=== PATIENT | female | born 1995 | race Caucasian/White ===

== ENCOUNTER 2018-05-03 16:02 | Observation (INO) ==
[2018-05-03] MEDS ORDERED: ZOFRAN INJ 4 MG VIAL IVP PRN (16:09)
[2018-05-03] MEDS ORDERED: DILAUDID INJ IVP PRN (16:10)
[2018-05-03 16:43] LABS: BASOPHILS # (AUTO) 0.1 X10^3/uL (0.0-0.1); BASOPHILS % (AUTO) 1.5 % (0.2-1.0); EOSINOPHILS % (AUTO) 0.6 % (0.9-2.9); HEMATOCRIT 39.3 % (36.0-47.0); HEMOGLOBIN 13.7 g/dL (12.0-16.0); LYMPHOCYTES # (AUTO) 2.4 X10^3/uL (1.3-2.9); LYMPHOCYTES % (AUTO) 34.9 % (21.0-51.0); MEAN CORPUSCULAR HEMOGLOBIN 27.9 pg (27.0-34.0); MEAN CORPUSCULAR HGB CONC 34.9 g/dL (33.0-35.0); MEAN PLATELET VOLUME 7.7 fL (7.4-11.0); MONOCYTES # (AUTO) 0.6 x10^3/uL (0.3-0.8); MONOCYTES % (AUTO) 8.2 % (0.0-13.0); NEUTROPHILS # (AUTO) 3.7 x10^3/uL (2.2-4.8); NEUTROPHILS % (AUTO) 54.8 % (42.0-75.0); PLATELET COUNT 288 X10^3/uL (150.0-450.0); RED BLOOD COUNT 4.91 X10^6/uL (3.5-5.4); RED CELL DISTRIBUTION WIDTH 13.8 % (11.6-16.5); WHITE BLOOD COUNT 6.8 X10^3/uL (3.6-10.0)
[2018-05-03 17:02] LABS: ALANINE AMINOTRANSFERASE 16 Units/L (12-78); ALBUMIN 4.4 g/dL (3.4-5.0); ALKALINE PHOSPHATASE 71 Units/L (46-116); AMYLASE 57 Units/L (25-115); ASPARTATE AMINO TRANSFERASE 10 Units/L (15-37); BLOOD UREA NITROGEN 7 mg/dL (7-18); CARBON DIOXIDE 25.8 mmol/L (21-32); CHLORIDE 102 mmol/L (98-107); CREATININE 0.85 mg/dL (0.55-1.02); LIPASE 102 Units/L (73-393); SODIUM 139 mmol/L (136-145); TOTAL PROTEIN 8.1 g/dL (6.4-8.2); eGFR NON BLACK RACES > 60 (>60)
[2018-05-03] MEDS: PROTONIX INJ 40 MG VIAL IVP SCH (17:19)
[2018-05-03] MEDS: FLAGYL IV PREMIX 500 MG BAG 500 MG/100 ML BAG IV SCH (17:19)
[2018-05-03] MEDS: D5 1/2 NS 1000 ML 1,000 ML IV SCH (17:19)
[2018-05-03] MEDS ORDERED: K-LYTE EFFERVESCENT PO PRN (17:32)
[2018-05-03] MEDS ORDERED: POTASSIUM CHLORIDE LIQ 20 MEQ UDC PO PRN (17:32)
[2018-05-03] MEDS ORDERED: POTASSIUM CHL 40 MEQ/NS 0.45% 500 ML IV PRN (17:32)
[2018-05-03] MEDS ORDERED: POTASSIUM CHL 60 MEQ/NS 0.45% 500 ML IV PRN (17:32)
[2018-05-03] MEDS ORDERED: K-RIDER 10 MEQ/NS 100 ML 10 MEQ/100 ML BAG IV PRN (17:32)
[2018-05-03 20:03] VITALS: BMI 22.1
[2018-05-03 23:31] LABS: CRYPTOSPORIDIUM PARVUM ANTIGEN NEGATIVE (NEGATIVE); GIARDIA LAMBLIA ANTIGEN NEGATIVE (NEGATIVE)
[2018-05-03 23:32] LABS: STOOL FOR WBC NEGATIVE (NEGATIVE)
[2018-05-04] MEDS: FLAGYL IV PREMIX 500 MG BAG 500 MG/100 ML BAG IV SCH ×2 (01:34→08:38)
[2018-05-04 01:53] LABS: BILIRUBIN,URINE NEGATIVE (NEGATIVE); BLOOD/HEMOGLOBIN,URINE NEGATIVE (NEGATIVE); GLUCOSE, URINE NEGATIVE (NEGATIVE); KETONES,URINE 1+ (NEGATIVE); LEUKOCYTE ESTERASE ,URINE 1+ (NEGATIVE); NITRITES,URINE NEGATIVE (NEGATIVE); PROTEIN,URINE NEGATIVE (NEGATIVE); UROBILINOGEN,URINE NORMAL (NORMAL)
[2018-05-04 02:06] LABS: APPEARANCE,URINE CLEAR (CLEAR); COLOR,URINE YELLOW (YELLOW)
[2018-05-04 02:07] LABS: BACTERIA,URINE TRACE /HPF (NEGATIVE); RBC,URINE NONE SEEN /HPF (NONE SEEN); SQUAMOUS EPITHELIAL CELL,UR MODERATE /HPF (NEGATIVE)
[2018-05-04] MEDS: D5 1/2 NS 1000 ML 1,000 ML IV SCH ×3 (03:10→09:52)
[2018-05-04 05:22] LABS: BASOPHILS % (AUTO) 0.5 % (0.2-1.0); EOSINOPHILS % (AUTO) 0.7 % (0.9-2.9); HEMATOCRIT 32.9 % (36.0-47.0); HEMOGLOBIN 11.4 g/dL (12.0-16.0); LYMPHOCYTES # (AUTO) 2.1 X10^3/uL (1.3-2.9); LYMPHOCYTES % (AUTO) 34.8 % (21.0-51.0); MEAN CORPUSCULAR HEMOGLOBIN 27.9 pg (27.0-34.0); MEAN CORPUSCULAR HGB CONC 34.7 g/dL (33.0-35.0); MEAN CORPUSCULAR VOLUME 80.4 fL (80.0-100.0); MEAN PLATELET VOLUME 7.9 fL (7.4-11.0); MONOCYTES # (AUTO) 0.5 x10^3/uL (0.3-0.8); MONOCYTES % (AUTO) 8.6 % (0.0-13.0); NEUTROPHILS # (AUTO) 3.4 x10^3/uL (2.2-4.8); NEUTROPHILS % (AUTO) 55.4 % (42.0-75.0); PLATELET COUNT 248 X10^3/uL (150.0-450.0); RED BLOOD COUNT 4.09 X10^6/uL (3.5-5.4); RED CELL DISTRIBUTION WIDTH 13.7 % (11.6-16.5); WHITE BLOOD COUNT 6.1 X10^3/uL (3.6-10.0)
[2018-05-04 05:51] LABS: ALANINE AMINOTRANSFERASE 15 Units/L (12-78); ALBUMIN 3.4 g/dL (3.4-5.0); ALKALINE PHOSPHATASE 55 Units/L (46-116); ASPARTATE AMINO TRANSFERASE 9 Units/L (15-37); BLOOD UREA NITROGEN 5 mg/dL (7-18); CALCIUM 8.5 mg/dL (8.5-10.1); CHLORIDE 106 mmol/L (98-107); COR NA(FOR HYPERGLY) 139 mmol/L (136-145); CREATININE 0.79 mg/dL (0.55-1.02); SODIUM 139 mmol/L (136-145); TOTAL PROTEIN 6.4 g/dL (6.4-8.2); eGFR NON BLACK RACES > 60 (>60)
[2018-05-04] MEDS: PROTONIX INJ 40 MG VIAL IVP SCH (08:34)
[2018-05-04 13:30] VITALS: BP 109/55
--- NOTE | 2018-06-04 11:51 | DR.CARTERS ---
Short Stay Summary - Short Stay Summary for: Short Stay Summary for Date of:: 05/04/18 - Admission Date Date of Admission: 05/03/18 - Discharge Date Discharge Date: 05/04/18 - Admission Diagnoses (1) Dehydration Status: Acute (2) Diarrhea Status: Acute (3) Gastroenteritis Status: Acute - Hospital Course Hospital Course: Day one, Patient presented to the hospital as a direct admission after being seen in the office with reports of abdominal pain. She was seen yesterday with abdominal pain localized to the right side of the abdomen and right lower quadrant, as well as the epigastrium. The patient had been having this pain for several days with nausea and vomiting, then her symptoms improved to start again with diarrhea, persistent pain, and nausea. No further vomiting, but she was having watery bowel movements without any rectal bleeding. The patient was getting dehydrated. Her CAT scan was done yesterday which did not show any evidence of acute appendicitis or other intraabdominal or pelvic pathologies. No previous episodes of similar abdominal pain. No known history of inflammatory bowel disease or other types of colitis although she was diagnosed as having irritable bowel syndrome because of the chronic diarrhea and cramps. Dr. Villalobos was consulted and recommended IV Flagyl and stool studies for C- Diff. Medical History: IBS. Abnormal Labs: Potassium 3.0, AST 10. Urinalysis : Ketones 1+, Leuk Est 1+, WBC 0-2, Bacteria Trace. Stool Culture obtained. Medications: Zofran 4mg IV Q6hr PRN, Dilaudid 1mg IV Q3hr PRN, D5 1/2 NS @150ml/ hr, Flagyl 500mg IV Q8hr, Protonix 40mg IV daily, Potassium Protocol PRN. Day two, patient reported she felt better. She denied diarrhea, nausea, or vomiting. She reported abdominal pain was improving and diet was tolerated with no vomiting. Vital signs stable. Labs wnl. Stool studies and cultures were negative. We planned for discharge. Instructions for medications and follow up were discussed with patient and family, both voiced understanding. Patient discharged home in stable condition with family. - Discharge Medications Discharge Medications: Home Medication List NK 05/03/18 [History] Prescriptions: - Discharge Plan Disposition: 01 HOME, SELF-CARE Condition: Stable - Follow up/Referrals Follow up/Referrals: ERMELINDA VILLALOBOS [Primary Care Provider] - 05/11/18 2:20 pm - Instructions Instructions: Viral Gastroenteritis, Adult, Dehydration, Adult, [id number], Rehydration, Adult, Antibiotic Medicine, Adult, Pain Medicine Instructions, Easy -to-Read, Diarrhea, Adult, [id number] Additional Instructions: DIET TOLERATED. ACTIVITY TOLERATED. PRESCRIPTIONS FOR NORCO 5/325MG PO Q6H PRN, FLAGYL 500MG PO Q8H, AND ZOFRAN 4MG PO Q6H PRN SENT TO [facility] BY . Forms: Patient Portal
== END 2018-05-04 14:30 | disposition home or self-care (01) ==
LOC: MED/SURG
PROVIDERS: ADMIT Internal Medicine; ATTEND Internal Medicine
DX: E87.6 Hypokalemia; E86.0 Dehydration; K52.89 Other specified noninfective gastroenteritis and colitis; R19.7 Diarrhea, unspecified
CPT/HCPCS: 36415; 80053; 81001; 82150; 82270; 83630; 83690; 83735; 85025; 87045; 87328; 87329; 87427; 87449; 87493; 87899; A4222; C9113; S0030; G0378; J2405; J3480; S5010